=== PATIENT | female | born 1955 | race Caucasian/White ===

== ENCOUNTER → 2016-11-28 | Outpatient (CLI) | payer MEDICARE, BC ==
[~2016-11-28] MED LIST: AMBIEN CR PO; ASPIRIN EC81 M1 PO; ASPIRIN81 M1 PO; CARAFATE PO; DEXILANT60 MG PO; LOVASTATIN20 MG PO; METFORMIN HCL500 M1 PO; MOBIC PO; NEXIUM PO; PROZAC PO; SYNTHROID PO; TRICOR145 MG PO; ZYRTEC-D T1 TAB.SR1 PO
--- NOTE | ~2016-11-28 | BD1 ---
[facility] A Service of [facility] RADIOLOGY TEXT RESULTS PATIENT: NICKI SEAMAN LOCATION: [facility] : 53 UNIT #: [id number] AGE: [address]: Tyra Morales MD SEX: F ORDER DR: [id number] [facility] [address] [place], [place] [address] [id number] O MR#: [id number] Acc #: [id number] NAME: NICKI SEAMAN : 1955 SEX: F STUDY DATE/TIME: 11/28/2016 9:15 UNIT: [facility] ROOM: STUDY DESCRIPTION: BD Dexa Bone Dens 1+ Site Attending Physician: Tyra Morales M.D. Referring Physician: Tyra Morales M.D. Ordering Physician: Tyra Morales M.D. Primary Care Physician: Tyra Morales M.D. MEDICAL IMAGING REPORT This report is preliminary unless electronic signature is present EXAM DXA scan HISTORY 61-year-old female postmenopausal screening for osteoporosis. Patient on Synthroid. FINDINGS Bone density was assessed utilizing Hologic bone densitometer. Total bone density in the lumbar spine was calculated at 0.946 g/cm2 with a T-score of -0.9. Total bone density in the proximal left femur was calculated at 0.934 g/cm2 with a T score of -0.1. Total bone density in the left femoral neck was calculated at 0.711 g/cm2 with a T score of -1.2. IMPRESSION Total bone density within the proximal left femur and within the lumbar spine is within 1 standard deviation of the mean and therefore normal. Patient does demonstrate slightly decreased density in the left femoral neck which would place the patient in the category of osteopenia but this is felt to be a less accurate predictor of overall bone density. Dictated by... Concetta Antony M.D. THIS IS AN ELECTRONICALLY VERIFIED REPORT Concetta Antony M.D. at 11/28/2016 5:01 PM PETE/harshal TD: 11/28/2016 12:34 JOB #: [id number] MEDICAL IMAGING REPORT [facility] A Service of [facility] & [facility] RADIOLOGY TEXT RESULTS PATIENT: NICKI SEAMAN LOCATION: [facility] #: [id number] : 53 UNIT #: [id number] AGE: [address]: Tyra Morales MD SEX: F ORDER DR: COPY
--- NOTE | ~2016-11-28 | MY11 ---
[facility] A Service of [facility] RADIOLOGY TEXT RESULTS PATIENT: NICKI SEAMAN LOCATION: [facility] : 53 UNIT #: [id number] AGE: [address]: Tyra Morales MD SEX: F ORDER DR: [id number] [id number] [facility]. [place], [place] [address] [id number] O MR#: [id number] Acc #: [id number] NAME: NICKI SEAMAN : 1955 SEX: F STUDY DATE/TIME: 11/28/2016 9:07 UNIT: [facility] ROOM: STUDY DESCRIPTION: MY Mammogram Screening Dig Castillo Attending Physician: Tyra Morales M.D. Referring Physician: Tyra Morales M.D. Ordering Physician: Tyra Morales M.D. Primary Care Physician: Tyra Morales M.D. MEDICAL IMAGING REPORT This report is preliminary unless electronic signature is present EXAM Bilateral digital screening with CAD INDICATION Routine screening. No current complaints. No family history of breast cancer. COMPARISON 10/13/2013, 10/07/2013 and 12/12/2011 FINDINGS MLO and CC digital views of each breast were obtained. The exam was reviewed with an FDA-approved CAD device. There are calcified oil cysts bilaterally. The breasts are mostly fatty replaced. There are some benign calcifications bilaterally which are increasing. These are coarse calcifications. They are scattered throughout both breasts with 1 cluster in the right upper outer quadrant that has a benign appearance. IMPRESSION No change and no evidence of malignancy. Patients over the age of 40 are entered into a reminder system with target due date for the next mammogram. A result letter will also be sent to the patient. BIRADS: 2 Benign Finding Dictated by... Fortino Michaud M.D. THIS IS AN ELECTRONICALLY VERIFIED REPORT Fortino Michaud M.D. at 11/28/2016 2:07 PM MARYLOU/mauro [facility] A Service of [facility] RADIOLOGY TEXT RESULTS PATIENT: NICKI SEAMAN LOCATION: [facility] #: [id number] : 53 UNIT #: [id number] AGE: [address]: Tyra Morales MD SEX: F ORDER DR: TD: 11/28/2016 12:08 JOB #: [id number] MEDICAL IMAGING REPORT COPY
== END | disposition home or self-care (01) ==
LOC: CWCC 08:45
DX: Z12.31 Encounter for screening mammogram for malignant neoplasm of breast (principal); M85.88 Other specified disorders of bone density and structure, other site; M85.80 Other specified disorders of bone density and structure, unspecified site
CPT/HCPCS: 77080; G0202